=== PATIENT | female | born 1980 | race Caucasian/White ===

== ENCOUNTER 2018-07-21 13:42 | Emergency (ER) | payer OTHER ==
--- NOTE | 2018-07-21 15:50 | UC ---
Complaint Female HPI - HPI Summary HPI Summary: 38-year-old woman coming to clinic today with a chief complaint that her partner told her that last week he was diagnosed with Trichomonas. She has been having some intermittent abdominal pain but she has a history of IBS and so she is not sure if it's her IBS. No complaint of any discharge or burning with urination or changes in bowel. No fevers or chills. No rash. - History Of Current Complaint Chief Complaint: UCSTDScreening Stated Complaint: PERSONAL Time Seen by Provider: 07/21/18 15:31 Hx Last Menstrual Period: 07/09/18 Pain Intensity: 6 - Allergies/Home Medications Allergies/Adverse Reactions: Allergies Allergy/AdvReac Type Severity Reaction Status Date / Time Sulfa (Sulfonamide Allergy Hives Verified 07/21/18 14:35 Antibiotics) Home Medications: Home Medications ALPRAZolam [Xanax] 1 mg PO BID 07/21/18 [History Confirmed 07/21/18] Cholecalciferol (Vitamin D3) [Vitamin D3] 1 tab PO DAILY 07/21/18 [History Confirmed 07/21/18] Duloxetine HCl [Cymbalta] 20 mg PO DAILY 07/21/18 [History Confirmed 07/21/18] Ferrous Sulfate 325 mg PO DAILY 07/21/18 [History Confirmed 07/21/18] Loratadine [Claritin] 10 mg PO DAILY 07/21/18 [History Confirmed 07/21/18] Multivitamin [Multivitamins] 1 cap PO DAILY 07/21/18 [History Confirmed 07/21/18 ] Oxycodone HCl [Oxycodone HCl ER] 20 mg PO BID PRN 07/21/18 [History Confirmed ] Sucralfate [Carafate] 1 gm PO TID 07/21/18 [History Confirmed 07/21/18] PMH/Surg Hx/FS Hx/Imm Hx GI/ History: Other - IBS Other GI/ History: IBS - Surgical History Surgical History: Yes Surgery Procedure, Year, and Place: breast surgery x2. cholecystectomy. metal plate into face - Family History Known Family History: Negative: Diabetes - Social History Alcohol Use: None Substance Use Type: None Smoking Status (MU): Light Every Day Tobacco Smoker Amount Used/How Often: 1/2 ppd Household Exposure Type: Cigarettes Review of Systems Constitutional: Negative Skin: Negative Eyes: Negative ENT: Negative Respiratory: Negative Cardiovascular: Negative Gastrointestinal: Other - SEE HPI Genitourinary: Other - SEE HPI Motor: Negative Neurovascular: Negative Musculoskeletal: Negative Neurological: Negative Psychological: Negative Is Patient Immunocompromised?: No All Other Systems Reviewed And Are Negative: Yes Physical Exam Triage Information Reviewed: Yes Appearance: Well-Appearing, No Pain Distress, Well-Nourished Vital Signs: Initial Vital Signs Temp 98 F 07/21/18 14:28 Pulse 77 07/21/18 14:28 Resp 18 07/21/18 14:28 BP 108/63 07/21/18 14:28 Pulse Ox 100 07/21/18 14:28 Eye Exam: Normal Eyes: Positive: Conjunctiva Clear Neck exam: Normal Neck: Positive: Supple Respiratory: Positive: No respiratory distress Abdomen Description: Positive: Nontender, Soft Pelvic Exam: Positive: External Exam Normal, Speculum Exam Normal, No Cerv. Motion Tender Musculoskeletal Exam: Normal Musculoskeletal: Positive: Strength Intact, ROM Intact Neurological Exam: Normal Neurological: Positive: Alert Psychological Exam: Normal Psychological: Positive: Age Appropriate Behavior Skin Exam: Normal Complaint Female Dx - Course Course Of Treatment: At this time the patient would like to have a full STI SCREEN. Plan is to treat with Flagyl for possible Trichomonas and the rest of the treatment is based on the results. Follow-up with primary care doctor or return here sooner if needed. - Differential Dx/Diagnosis Provider Diagnoses: Exposure to Trichomonas Discharge - Sign-Out/Discharge Documenting (check all that apply): Patient Departure All imaging exams completed and their final reports reviewed: No Studies - Discharge Plan Condition: Stable Disposition: HOME Prescriptions: metroNIDAZOLE [Flagyl] 500 mg PO BID #14 tablet Patient Education Materials: Trichomoniasis (ED) Referrals: Gisela Gilliam DO [Primary Care Provider] - Additional Instructions: FOLLOW UP WITH YOUR DOCTOR. GET RECHECKED FOR ANY WORSENING OF YOUR CONDITION OR QUESTIONS OR CONCERNS. - Billing Disposition and Condition Condition: STABLE Disposition: Home
--- NOTE | 2018-07-22 20:57 | UC ---
- Progress Note Progress Note: Culture positive for gardnerella, negative gonorrhea, chlamydia, trichomonas vaginalis. Syphilis non-reactive and HIV non-reactive. Hepatitis showed low reactive Hep C and is pending reflex testing. The positive gardnerella suggestive of bacterial vaginosis. She was treated with 7 day course of metronidazole which is sufficient for treatment. No change in treatment at this time. Discharge - Sign-Out/Discharge Documenting (check all that apply): Post-Discharge Follow Up All imaging exams completed and their final reports reviewed: No Studies - Discharge Plan Condition: Stable Disposition: HOME Prescriptions: metroNIDAZOLE [Flagyl] 500 mg PO BID #14 tablet Patient Education Materials: Trichomoniasis (ED) Referrals: Gisela Gilliam DO [Primary Care Provider] - Additional Instructions: FOLLOW UP WITH YOUR DOCTOR. GET RECHECKED FOR ANY WORSENING OF YOUR CONDITION OR QUESTIONS OR CONCERNS. - Billing Disposition and Condition Condition: STABLE Disposition: Home
== END 2018-07-21 16:17 | disposition home or self-care (01) ==
LOC: UCEAST 13:42
DX: Z20.2 Contact with and (suspected) exposure to infections with a predominantly sexual mode of transmission (principal); R10.9 Unspecified abdominal pain; F17.210 Nicotine dependence, cigarettes, uncomplicated; Z88.2 Allergy status to sulfonamides
CPT/HCPCS: 36415; 80074; 81003; 84702; 86592; 86703; 87086; 87480; 87491; 87510; 87522; 87591; 87661; 99202; G0463